=== PATIENT | female | born 2000 | race Caucasian/White ===

== ENCOUNTER 2022-01-18 10:36 | Emergency (ER) | payer OTHER, BC ==
[2022-01-18 10:49] VITALS: BP 159/68; PULSE 109; RESP 18; TEMP 98.1
[2022-01-18] MEDS ORDERED: ORPHENADRINE 30 MG/ML 2 ML VIAL IM STA (11:12)
[2022-01-18] MEDS ORDERED: Acetaminophen-Codeine 300-30mg TAB PO STA (11:12)
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
[2022-01-18] MEDS ORDERED: CYCLOBENZAPRINE 10 MG TAB PO STA (11:25)
== END 2022-01-18 11:41 | disposition home or self-care (01) ==
LOC: EC 10:36
DX: M54.9 Dorsalgia, unspecified (principal); Z88.6 Allergy status to analgesic agent; V89.2XXA Person injured in unspecified motor-vehicle accident, traffic, initial encounter
CPT/HCPCS: 99283